=== PATIENT | male | born 1965 | race African-American/Black ===

== ENCOUNTER 2023-03-31 23:38 | Emergency (ER) | payer MEDICAID ==
[~2023-03-31] VITALS: Ht 172.7 cm; Wt 64.0 kg
[2023-04-01] MEDS ORDERED: METHYLPREDNISOLONE SOD SUCC 125MG/2ML (ACT-O-VIAL) IV STA (00:04)
[2023-04-01] MEDS ORDERED: IPRATROPIUM BROMIDE (0.02%) 0.5MG/2.5ML NEB HHN STA (00:04)
[2023-04-01] MEDS ORDERED: MAGNESIUM 2 G PREMIX 50 ML IV ONE (00:15)
[2023-04-01 00:29] LABS: BASOPHILS % 0.6 % (0.0-2.0); EOSINOPHILS % 5.1 % (0.0-5.0); HEMATOCRIT. 45.3 % (42.0-52.0); HEMOGLOBIN. 14.8 g/dL (14.0-18.0); LYMPHOCYTES % 18.2 % (20.0-50.0); MEAN CORPUSCULAR HEMOGLOBIN 28.8 pg (28.0-32.0); MEAN CORPUSCULAR HGB CONC 32.7 g/dL (31.0-37.0); MEAN CORPUSCULAR VOLUME 87.9 fL (80.0-94.0); MEAN PLATELET VOLUME 9.1 fl (7.4-10.4); MONOCYTES % 7.1 % (2.0-8.0); PLATELET 233 x1000/uL (130-400); RED BLOOD CELL COUNT 5.16 mill/uL (4.7-6.1); RED CELL DISTRIBUTION WIDTH 13.7 % (11.6-14.6); WHITE BLOOD COUNT 6.3 x1000/uL (4.5-11.0)
[2023-04-01 00:33] LABS: CHLORIDE 108 mEq/L (98-107); INDEX HEMOLYSI 3 (1-3); INDEX ICTERIC 1 (1-4); INDEX LIPEMIC 1 (1-3); POTASSIUM 4.2 mEq/L (3.5-5.1); SODIUM 139 mEq/L (136-145)
[2023-04-01 00:44] LABS: ALANINE AMINOTRANSFERASE 39 IU/L (13-61); ALBUMIN 3.7 g/dL (3.4-5.0); ASPARTATE AMINOTRANSFERASE 19 IU/L (15-37); BILIRUBIN TOTAL 0.4 mg/dL (0.1-1.0); CALCIUM 8.4 mg/dL (8.5-10.1); CARBON DIOXIDE 31 mEq/L (21-32); CREATININE 1.1 mg/dL (0.6-1.3); GLUCOSE 143 mg/dL (70-105); PROTEIN TOTAL 6.9 g/dL (6.0-8.3); TROPONIN I HIGH SENSITIVITY 5 ng/L (<78); UREA NITROGEN BLOOD 19 mg/dL (7-21)
[2023-04-01 01:44] VITALS: PULSE 79; RESP 22; O2SAT 98
[2023-04-01] MEDS: ALBUTEROL (0.083%) 2.5MG/3ML NEB HHN SCH ×2 (01:44→02:14)
[2023-04-01 02:00] VITALS: BP 120/77; TEMP 98.7
[2023-04-01 02:14] VITALS: PULSE 83; RESP 22; O2SAT 98
[2023-04-01 02:44] VITALS: PULSE 83; RESP 20; O2SAT 98
[2023-04-01] MEDS ORDERED: P20 MT (03:02)
[2023-04-01] MEDS ORDERED: ALBU6.7H3 INH (03:02)
== END 2023-04-01 03:37 | disposition home or self-care (01) ==
LOC: ER 23:38 → EDBD 23:38 → ER 04-01 03:37
DX: J44.1 Chronic obstructive pulmonary disease with (acute) exacerbation (principal); F17.210 Nicotine dependence, cigarettes, uncomplicated; F19.90 Other psychoactive substance use, unspecified, uncomplicated
CPT/HCPCS: 94640; 99285; 80053; 83605; 85025; 84484; 36415; 71045; 96365; 96375; Z7610 ×6; J3475; J2930

== ENCOUNTER 2023-04-18 19:59 | Emergency (ER) | payer MEDICAID ==
[~2023-04-18] VITALS: Ht 172.7 cm; Wt 79.0 kg
[~2023-04-18 19:59] MED LIST: ALBU6.7H3 INH; P20 MT
[2023-04-18 20:10] VITALS: RESP 24
[2023-04-18] MEDS ORDERED: METHYLPREDNISOLONE SOD SUCC 40MG VIAL IV ONE (20:45)
[2023-04-18] MEDS ORDERED: IPRATROPIUM/ALBUTEROL 0.5-3(2.5)MG/3ML NEB HHN ONE (20:45)
[2023-04-18 20:55] LABS: BASOPHILS % 0.7 % (0.0-2.0); EOSINOPHILS % 7.7 % (0.0-5.0); HEMATOCRIT. 43.9 % (42.0-52.0); HEMOGLOBIN. 14.3 g/dL (14.0-18.0); MEAN CORPUSCULAR HEMOGLOBIN 28.6 pg (28.0-32.0); MEAN CORPUSCULAR HGB CONC 32.6 g/dL (31.0-37.0); MEAN CORPUSCULAR VOLUME 87.8 fL (80.0-94.0); MEAN PLATELET VOLUME 9.7 fl (7.4-10.4); MONOCYTES % 10.7 % (2.0-8.0); NEUTROPHILS % 46.9 % (40.0-76.0); PLATELET 274 x1000/uL (130-400); RED CELL DISTRIBUTION WIDTH 13.6 % (11.6-14.6); WHITE BLOOD COUNT 5.1 x1000/uL (4.5-11.0)
[2023-04-18] MEDS ORDERED: METHYLPREDNISOLONE SOD SUCC 125MG/2ML (ACT-O-VIAL) IV NR (21:00)
[2023-04-18 21:05] LABS: CHLORIDE 108 mEq/L (98-107); INDEX HEMOLYSI 1 (1-3); INDEX ICTERIC 1 (1-4); INDEX LIPEMIC 1 (1-3); POTASSIUM 3.8 mEq/L (3.5-5.1); SODIUM 138 mEq/L (136-145)
[2023-04-18 21:13] LABS: ALANINE AMINOTRANSFERASE 31 IU/L (13-61); ALBUMIN 3.7 g/dL (3.4-5.0); ASPARTATE AMINOTRANSFERASE 14 IU/L (15-37); BILIRUBIN TOTAL 0.4 mg/dL (0.1-1.0); CALCIUM 8.3 mg/dL (8.5-10.1); CARBON DIOXIDE 29 mEq/L (21-32); CREATININE 0.9 mg/dL (0.6-1.3); GLUCOSE 103 mg/dL (70-105); NT PRO B-TYPE NATRIURETIC PEP 15 pg/mL (5-125); PROTEIN TOTAL 6.9 g/dL (6.0-8.3); TROPONIN I HIGH SENSITIVITY 4 ng/L (<78); UREA NITROGEN BLOOD 8 mg/dL (7-21)
[2023-04-18 21:25] VITALS: PULSE 100; RESP 18; O2SAT 98
[2023-04-18] MEDS ORDERED: ATROV INH (22:09)
[2023-04-18] MEDS ORDERED: VARE1TAB22 MT (22:09)
[2023-04-18] MEDS ORDERED: ALBU6.7H15 INH (22:09)
[2023-04-18] MEDS ORDERED: P50 MT (22:09)
[2023-04-18 23:45] LABS: TROPONIN I HIGH SENSITIVITY 5 ng/L (<78)
[2023-04-18 23:54] VITALS: BP 119/77; PULSE 71; RESP 15; TEMP 98
== END 2023-04-19 | disposition home or self-care (01) ==
LOC: ER 19:59
DX: R06.2 Wheezing (principal); J44.9 Chronic obstructive pulmonary disease, unspecified; I10 Essential (primary) hypertension; F17.200 Nicotine dependence, unspecified, uncomplicated
CPT/HCPCS: 80053; 83880; 85025; 84484; 36415; 71045; 94640; 94660; 93005; 94003; 96374; 99285; J2930; Z7610 ×4; J2920

== ENCOUNTER 2023-05-05 04:13 | Emergency (ER) | payer MEDICAID ==
[~2023-05-05] VITALS: Ht 175.3 cm; Wt 54.0 kg
[~2023-05-05 04:13] MED LIST changes: +ALBU6.7H15 INH; +ATROV INH; +P50 MT; +VARE1TAB22 MT
[2023-05-05 04:37] LABS: EOSINOPHILS % 8.3 % (0.0-5.0); HEMATOCRIT. 45.8 % (42.0-52.0); HEMOGLOBIN. 15.1 g/dL (14.0-18.0); LYMPHOCYTES % 29.8 % (20.0-50.0); MEAN CORPUSCULAR VOLUME 88.1 fL (80.0-94.0); MEAN PLATELET VOLUME 9.1 fl (7.4-10.4); MONOCYTES % 11.6 % (2.0-8.0); NEUTROPHILS % 49.3 % (40.0-76.0); PLATELET 279 x1000/uL (130-400); RED CELL DISTRIBUTION WIDTH 13.9 % (11.6-14.6); WHITE BLOOD COUNT 5.3 x1000/uL (4.5-11.0)
[2023-05-05 04:45] LABS: CHLORIDE 112 mEq/L (98-107); INDEX HEMOLYSI 1 (1-3); INDEX ICTERIC 1 (1-4); INDEX LIPEMIC 1 (1-3); POTASSIUM 4.2 mEq/L (3.5-5.1); SODIUM 140 mEq/L (136-145)
[2023-05-05 04:54] LABS: ALANINE AMINOTRANSFERASE 30 IU/L (13-61); ALBUMIN 3.7 g/dL (3.4-5.0); ASPARTATE AMINOTRANSFERASE 16 IU/L (15-37); BILIRUBIN TOTAL 0.2 mg/dL (0.1-1.0); CALCIUM 8.5 mg/dL (8.5-10.1); CARBON DIOXIDE 28 mEq/L (21-32); CREATININE 1.2 mg/dL (0.6-1.3); GLUCOSE 126 mg/dL (70-105); PROTEIN TOTAL 7.3 g/dL (6.0-8.3); TROPONIN I HIGH SENSITIVITY 6 ng/L (<78); UREA NITROGEN BLOOD 23 mg/dL (7-21)
[2023-05-05] MEDS ORDERED: METHYLPREDNISOLONE SOD SUCC 125MG/2ML (ACT-O-VIAL) IV STA (05:12)
[2023-05-05] MEDS ORDERED: IPRATROPIUM BROMIDE (0.02%) 0.5MG/2.5ML NEB HHN STA (05:12)
[2023-05-05] MEDS ORDERED: MAGNESIUM 2 G PREMIX 50 ML IV STA (05:12)
[2023-05-05] MEDS ORDERED: ALBUTEROL (0.083%) 2.5MG/3ML NEB HHN STA (05:12)
[2023-05-05 05:37] VITALS: PULSE 79; RESP 20; O2SAT 98
[2023-05-05] MEDS ORDERED: P50 PO (07:52)
[2023-05-05] MEDS ORDERED: ALBU6.7H15 INH (07:52)
[2023-05-05 08:03] LABS: CLARITY URINE CLEAR (CLEAR); COLOR URINE YELLOW (YELLOW); GLUCOSE URINE NEGATIVE (NEGATIVE); KETONES URINE NEGATIVE (NEGATIVE); LEUKOCYTE ESTERASE URINE NEGATIVE (NEGATIVE); NITRITE URINE NEGATIVE (NEGATIVE); OCCULT BLOOD URINE NEGATIVE (NEGATIVE); PH URINE 5.5 (4.5-8.0); PROTEIN URINE NEGATIVE (NEGATIVE); SPECIFIC GRAVITY URINE 1.022 (1.005-1.030)
[2023-05-05 08:09] VITALS: BP 109/68; PULSE 80; RESP 18; TEMP 98
== END 2023-05-05 08:10 | disposition home or self-care (01) ==
LOC: ER 04:13
DX: J45.901 Unspecified asthma with (acute) exacerbation (principal); I10 Essential (primary) hypertension; Z79.899 Other long term (current) drug therapy
CPT/HCPCS: 80053; 81003; 85025; 84484; 36415; 71045; 94640; 93005; 96365; 96375; 99285; J3475; J2930; Z7610 ×3

== ENCOUNTER → 2023-05-18 | Emergency (ER) | payer MEDICAID ==
[~2023-05-18] VITALS: Ht 172.7 cm; Wt 69.0 kg
[~2023-05-18] MED LIST changes: +ALBUTEROL (0.083%) 2.5MG/3ML NEB HHN STA; +FLUT1DIS3 INH; +IPRATROPIUM BROMIDE (0.02%) 0.5MG/2.5ML NEB HHN STA; +MAGNESIUM 2 G PREMIX 50 ML IV ONE; +MED4 MT; +METHYLPREDNISOLONE SOD SUCC 125MG/2ML (ACT-O-VIAL) IV STA; +P50 PO; +SODIUM CHLORIDE 0.9% 1,000 ML IV ONE
[2023-05-18 18:40] VITALS: PULSE 78; RESP 21; O2SAT 100
[2023-05-18 18:44] LABS: BASOPHILS % 0.7 % (0.0-2.0); HEMATOCRIT. 46.6 % (42.0-52.0); LYMPHOCYTES % 22.3 % (20.0-50.0); MEAN CORPUSCULAR HEMOGLOBIN 28.2 pg (28.0-32.0); MEAN CORPUSCULAR HGB CONC 32.3 g/dL (31.0-37.0); MEAN CORPUSCULAR VOLUME 87.4 fL (80.0-94.0); MEAN PLATELET VOLUME 9.3 fl (7.4-10.4); MONOCYTES % 9.5 % (2.0-8.0); NEUTROPHILS % 61.5 % (40.0-76.0); PLATELET 268 x1000/uL (130-400); RED BLOOD CELL COUNT 5.33 mill/uL (4.7-6.1); RED CELL DISTRIBUTION WIDTH 13.7 % (11.6-14.6); WHITE BLOOD COUNT 5.9 x1000/uL (4.5-11.0)
[2023-05-18 18:50] LABS: CHLORIDE 104 mEq/L (98-107); INDEX HEMOLYSI 3 (1-3); INDEX ICTERIC 1 (1-4); INDEX LIPEMIC 1 (1-3); POTASSIUM 4.2 mEq/L (3.5-5.1); SODIUM 137 mEq/L (136-145)
[2023-05-18 18:58] LABS: PROTHROMBIN TIME 10.7 sec (9.6-11.0)
[2023-05-18 19:00] LABS: ALANINE AMINOTRANSFERASE 35 IU/L (13-61); ALBUMIN 3.8 g/dL (3.4-5.0); ASPARTATE AMINOTRANSFERASE 19 IU/L (15-37); BILIRUBIN TOTAL 0.6 mg/dL (0.1-1.0); CALCIUM 8.7 mg/dL (8.5-10.1); CARBON DIOXIDE 26 mEq/L (21-32); GLUCOSE 95 mg/dL (70-105); PROTEIN TOTAL 7.6 g/dL (6.0-8.3); TROPONIN I HIGH SENSITIVITY 6 ng/L (<78); UREA NITROGEN BLOOD 14 mg/dL (7-21)
[2023-05-18 20:00] VITALS: BP 120/126; PULSE 78; RESP 14; TEMP 98.1
== END | disposition home or self-care (01) ==
LOC: ER 18:03
DX: J44.1 Chronic obstructive pulmonary disease with (acute) exacerbation (principal); I10 Essential (primary) hypertension; F17.290 Nicotine dependence, other tobacco product, uncomplicated; Z79.899 Other long term (current) drug therapy
CPT/HCPCS: 80053; 85025; 85610; 84484; 36415; 71045; 93005; 94644; 96375; 96365; 99285; 99406; J3475; J2930; Z7610 ×5; J7030

== ENCOUNTER 2023-06-22 09:01 | Emergency (ER) | payer MEDICAID ==
[~2023-06-22] VITALS: Ht 172.7 cm; Wt 64.0 kg
[~2023-06-22 09:01] MED LIST changes: -ALBUTEROL (0.083%) 2.5MG/3ML NEB HHN STA; -IPRATROPIUM BROMIDE (0.02%) 0.5MG/2.5ML NEB HHN STA; -MAGNESIUM 2 G PREMIX 50 ML IV ONE; -METHYLPREDNISOLONE SOD SUCC 125MG/2ML (ACT-O-VIAL) IV STA; -SODIUM CHLORIDE 0.9% 1,000 ML IV ONE
[2023-06-22 09:02] VITALS: BP 143/93; TEMP 98.4
[2023-06-22] MEDS ORDERED: MAGNESIUM 2 G PREMIX 50 ML IV STA (09:12)
[2023-06-22] MEDS ORDERED: METHYLPREDNISOLONE SOD SUCC 125MG/2ML (ACT-O-VIAL) IV STA (09:12)
[2023-06-22] MEDS ORDERED: ALBUTEROL (0.083%) 2.5MG/3ML NEB HHN STA (09:12)
[2023-06-22] MEDS ORDERED: IPRATROPIUM BROMIDE (0.02%) 0.5MG/2.5ML NEB HHN STA (09:12)
[2023-06-22 09:58] LABS: HEMATOCRIT 42.1 % (42.0-52.0); HEMOGLOBIN 13.7 g/dL (14.0-18.0); MEAN CORPUSCULAR HEMOGLOBIN 29.2 pg (28.0-32.0); MEAN CORPUSCULAR HGB CONC 32.4 g/dL (31.0-37.0); MEAN CORPUSCULAR VOLUME 90.1 fL (80.0-94.0); PLATELET 262 x1000/uL (130-400); RED BLOOD CELL COUNT 4.67 mill/uL (4.7-6.1); RED CELL DISTRIBUTION WIDTH 13.7 % (11.6-14.6); WHITE BLOOD COUNT 6.8 x1000/uL (4.5-11.0)
[2023-06-22 10:22] LABS: ALANINE AMINOTRANSFERASE 30 IU/L (10-49); ALBUMIN 4.2 g/dL (3.2-4.8); ASPARTATE AMINOTRANSFERASE 27 IU/L (<34); BILIRUBIN TOTAL 0.6 mg/dL (0.1-1.0); CALCIUM 9.1 mg/dL (8.7-10.4); CARBON DIOXIDE 26 mEq/L (21-32); CHLORIDE 107 mEq/L (98-107); GLUCOSE 130 mg/dL (70-105); POTASSIUM 3.9 mEq/L (3.5-5.1); PROTEIN TOTAL 6.1 g/dL (6.0-8.3); SODIUM 140 mEq/L (136-145); UREA NITROGEN BLOOD 12 mg/dL (9-23)
[2023-06-22 10:25] VITALS: PULSE 98; RESP 22; O2SAT 100
[2023-06-22] MEDS ORDERED: ALBU90AE INH (11:25)
[2023-06-22] MEDS ORDERED: P20 MT (11:25)
== END 2023-06-22 13:15 | disposition home or self-care (01) ==
LOC: ER 09:06
DX: J44.1 Chronic obstructive pulmonary disease with (acute) exacerbation (principal); I10 Essential (primary) hypertension; Z71.6 Tobacco abuse counseling; Z86.73 Personal history of transient ischemic attack (TIA), and cerebral infarction without residual deficits
CPT/HCPCS: 80053; 85027; 36415; 71045; 93005; 94644; 96365; 96375; 99291; J3475; J2930; Z7610 ×3